=== PATIENT | female | born 1940 | race Caucasian/White ===

== ENCOUNTER 2022-09-28 13:04 | Outpatient (RCR) | payer MEDICARE, SELFPAY ==
--- NOTE | 2022-09-28 14:21 | HP.PTEVAL_ITS ---
Patient's Visit Information CHANDANA YANEZ is a 82 year old F referred to Physical Therapy by SAUL DELANEY with a diagnosis of vertigo. Date of Evaluation: 09/28/22 Physical Therapist: Dandy Saldana, ALLYSONT, OCS, CSCS - Visit Plan Plan: Pt doing well clinically. Subjective intermittent symptoms at home but no correlation with clinical testing that makes PT appropriate. Pt to wait and see neuro in October after vascular testing. No skilled PT recommended at this point. - Subjective Sent here with vertigo. sent to neuro and then to PT. Family doctor sent her to neuro. Dizzyness episode last of May and first of June. Had a light episode last week where she veered to the right. No fall but did the other two times. These are described as veering to the right and no spinning. No preciptiating factor, only happens on feet. had one other light episode the other day. Did spin with June episode. Feels pretty normal in between the episodes. Has been taking meclizine for years since stroke in 2013. Haven't driven since the summer as she does not feel safe. Sits down when she gets an episode. This keeps her from driving. Dr. William r/o positional vertigo years ago. I have gotten lazy with this. Also get arthritis attacks and sees pain management for wrists, back and L foot. Had Catscan since May and may have narrow arteries and will see neuro at [facility], will have vascular.test on 10/31 and neuro on 11/01. - Objective Walks into PT I with short steps but straight and safe. Trasnfers without UE I bed and chair. Steps reciprocal with one rail up and down. Cervical AROM to 50 B rotation and 40 ext and no pain. UE AROM WFL and without pain. Reflexes 2/3 biceps and triceps B. Sensation UE WNL to gross light touch. Able to heel raise easily. Strength UE symmetrical and 4-/5 shoulder flexion, biceps, triceps and wrist ext. - B hallpike gurvinder. - roll test. Oculomotor: no nystagmus with head shake or gaze. normal pursuit and saccades without symptoms. VOr is normal and asymptomatic. - head thrust. - ocular tilt. - skew eye deviation. pt has no dizzyness today with any testing and no obvious clinical vestibular abnormalities in presentation. - Balance/Special Test Scores Functional Gait Assessment Score: 27 % Disability: 10.0000 Dizziness Score: 12 - Anticipated Interventions Thank you for the opportunity to evaluate your patient. For Medicare and Medicare HMO plans, please review the plan of care and approve it. It will need to be FAXED BACK to us at [phone] for Medicare purposes. For Medicare only, by signing this I certify the plan of care. Please let me know if there are questions or concerns regarding this plan of care. Physician Sign ature: Date:
== END 2022-09-28 19:00 | disposition home or self-care (01) ==
LOC: PT 13:04
PROVIDERS: Referring Provider Nurse Practitioner; Visit Provider Nurse Practitioner
DX: R42 Dizziness and giddiness (principal)
CPT/HCPCS: 97162